=== PATIENT | male | born 1980 | race Caucasian/White ===

== ENCOUNTER 2023-05-28 16:06 | Emergency (ER) | payer MEDICAID ==
[~2023-05-28] VITALS: Ht 170.2 cm; Wt 54.5 kg
[~2023-05-28 16:06] MED LIST: DICY10CA88 PO; NO HOME MEDS; ONDA4TAB59 PO; ONDA8TAB9 PO; PROM25TA14 PO; ZOF4T PO
[2023-05-28 16:08] VITALS: BP 130/74; PULSE 94; RESP 18; TEMP 98; O2SAT 98
[2023-05-28] MEDS ORDERED: NAPR-56 PO (16:53)
[2023-05-28] MEDS ORDERED: DOXY-411 PO (16:53)
== END 2023-05-28 16:58 | disposition home or self-care (01) ==
LOC: ER 16:07
DX: K04.7 Periapical abscess without sinus (principal); F12.90 Cannabis use, unspecified, uncomplicated; Z72.89 Other problems related to lifestyle; Z79.899 Other long term (current) drug therapy; Z88.0 Allergy status to penicillin; Z88.1 Allergy status to other antibiotic agents
CPT/HCPCS: 99283

== ENCOUNTER 2023-05-30 13:46 | Emergency (ER) | payer MEDICAID, OTHER ==
[~2023-05-30 13:46] MED LIST changes: +DOXY-411 PO; +NAPR-56 PO
== END 2023-05-30 14:23 | disposition left against medical advice (07) ==
LOC: ER 13:47
DX: K04.7 Periapical abscess without sinus (principal); Z53.21 Procedure and treatment not carried out due to patient leaving prior to being seen by health care provider

== ENCOUNTER 2024-02-24 14:22 | Emergency (ER) | payer OTHER ==
[~2024-02-24] VITALS: Ht 170.2 cm; Wt 54.5 kg
[~2024-02-24 14:22] MED LIST changes: -DOXY-411 PO; -NAPR-56 PO
[2024-02-24 17:47] LABS: BASOPHILS # (AUTO) 0.1 X10'3 (0-0.2); BASOPHILS % (AUTO) 0.9 % (0-1); EOSINOPHILS # (AUTO) 0.3 X10'3 (0-0.9); HEMOGLOBIN 15.6 g/dl (14.0-17.9); LYMPHOCYTES # (AUTO) 3.3 X10'3 (1.1-4.8); MONOCYTES # (AUTO) 0.8 X10'3 (0-0.9); MONOCYTES % (AUTO) 6.9 % (2-12)
[2024-02-24 17:49] LABS: EOSINOPHILS % (AUTO) 2.4 % (0-6); HEMATOCRIT 47.4 % (42.0-52.0); LYMPHOCYTES % (AUTO) 29.9 % (21-51); MEAN CORPUSCULAR HEMOGLOBIN 31.9 PG (27.0-31.0); MEAN CORPUSCULAR HGB CONC 32.9 g/dL (33.0-36.5); MEAN PLATELET VOLUME 9.8 FL (7.4-10.4); NEUTROPHILS # (AUTO) 6.5 X10'3 (1.8-7.7); NEUTROPHILS % (AUTO) 59.9 % (42-75); PLATELET COUNT 198 X10'3 (140-440); RED BLOOD COUNT 4.89 X10'6 (4.70-6.10); RED CELL DISTRIBUTION WIDTH 13.1 % (11.5-14.5); WHITE BLOOD COUNT 10.9 X10'3 (4.5-11.0)
[2024-02-24 18:06] LABS: ALANINE AMINOTRANSFERASE 20 U/L (12-78); ALBUMIN 3.6 G/DL (3.4-5.0); ALBUMIN/GLOBULIN RATIO 1.1 (1.1-1.5); ALKALINE PHOSPHATASE 72 IU/L (46-116); ANION GAP 7 (8-16); ASPARTATE AMINO TRANSFERASE 17 U/L (10-37); BILIRUBIN,TOTAL 0.3 MG/DL (0.1-1.0); BLOOD UREA NITROGEN 11 MG/DL (7-18); BUN/CREATININE RATIO 13.4 (10.0-20.0); CALCIUM 8.9 MG/DL (8.5-10.1); CHLORIDE 102 MMOL/L (99-107); CREATININE 0.82 MG/DL (0.60-1.10); GLUCOSE 86 MG/DL (70-104); LIPASE 30 U/L (16-77); SODIUM 139 MMOL/L (135-145); TOTAL CARBON DIOXIDE 29.9 MMOL/L (24-32); eCRCL 89 ML/MIN; eGFR > 90 ML/MIN
[2024-02-24] MEDS: levoFLOXACIN 750MG TABLET PO ONE (19:05)
[2024-02-24] MEDS: metroNIDAZOLE 500mg tablet PO ONE (19:05)
[2024-02-24] MEDS ORDERED: LEVO-65 PO (19:53)
[2024-02-24] MEDS ORDERED: METR-159 PO (19:53)
[2024-02-24 20:09] VITALS: BP 112/78; PULSE 72; RESP 16; TEMP 98.1; O2SAT 98
[2024-02-25 10:46] LABS: C DIFF ANTIGEN NEGATIVE (NEGATIVE); C DIFF SPECIMEN=DIARRHEA? ACCEPTABLE; C DIFFICILE TOXINS A&B NEGATIVE (Neg)
== END 2024-02-24 20:10 | disposition home or self-care (01) ==
LOC: ER 14:22
DX: K92.1 Melena (principal); F12.90 Cannabis use, unspecified, uncomplicated; Z88.0 Allergy status to penicillin; Z88.2 Allergy status to sulfonamides; Z79.899 Other long term (current) drug therapy; Z72.89 Other problems related to lifestyle
CPT/HCPCS: 74176; 80053; 83690; 85025; 87045; 87046; 87324; 87449; 99284